=== PATIENT | male | born 1950 | race Caucasian/White ===

== ENCOUNTER 2019-08-19 10:53 | Emergency (ER) | payer MEDICARE, OTHER ==
[~2019-08-19] VITALS: Ht 182 cm; Wt 80.0 kg
--- NOTE | 2019-08-19 11:27 | Diagnostic Imaging Report ---
PROCEDURE: CT head without contrast. TECHNIQUE: Multiple contiguous axial images were obtained through the brain without the use of intravenous contrast. Auto Exposure Controls were utilized during the CT exam to meet ALARA standards for radiation dose reduction. DATE: August 19, 2019. COMPARISON: None. INDICATION: 69-year-old male, fall. Hit head. FINDINGS: There is no identified skull fracture. The visualized portions of the paranasal sinuses, mastoid air cells, and middle ears are well-aerated bilaterally. There is a persistent cavum septum pellucidum and cavum Raymond. There is no hydrocephalus. There is no identified abnormal extra-axial fluid collection. There is no evidence of acute intracranial hemorrhage. There is no mass effect or midline shift. IMPRESSION: 1. No identified acute intracranial abnormality. Dictated by: Dictated on workstation # [id number]
[2019-08-19 11:36] VITALS: BP 147/86
--- NOTE | 2019-08-19 11:57 | ED Head Injury ---
General Chief Complaint: Head/Cervical Problems Stated Complaint: FALL - HIT HEAD Nursing Triage Note: PT FELL ON THE ICE AND HIT THE BACK OF HIS HEAD. SONHannah STATES HE WAS CONFUSED FOR A LITTLE BIT BUT SEEMS OT BE ACTING NORMAL NOW. Source: patient, family Exam Limitations: no limitations History of Present Illness Date Seen by Provider: Aug 19, 2019 Time Seen by Provider: 11:52 Initial Comments This 69-year-old white male presents after he is overtly filming ice and hit the back of his head shortly prior to presentation emergency department. Patient was momentarily confused but had no loss of consciousness. He has subsequently had no significant complaints other than of minor discomfort to the occiput. He denies neck pain. He denies paresthesias or weakness in extremities. He denies trauma to his chest abdomen or pelvis. Patient denies previous significant head injury. The patient sustained no abrasion. Allergies and Home Medications Home Medications Ibuprofen 800 Mg Tablet, 800 MG PO Q8H PRN for PAIN Prescribed by: GLADIS REID MD on 08/19/19 1158 Lisinopril 10 Mg Tablet, 10 MG PO DAILY Prescribed by: GLADIS REID MD on 08/19/19 1158 Patient Home Medication List Home Medication List Reviewed: Yes Review of Systems Review of Systems Constitutional: No chills, No fever Eyes: Denies Blindness, Denies Blurred Vision; Pain Ears, Nose, Mouth, Throat: no symptoms reported (to the occiput) Respiratory: no symptoms reported Cardiovascular: no symptoms reported Gastrointestinal: no symptoms reported Musculoskeletal: No back pain, No neck pain Skin: no symptoms reported Psychiatric/Neurological: No Symptoms Reported Endocrine: No Symptoms Reported Hematologic/Lymphatic: No Symptoms Reported Past Teprlev-Ctdzje-Atunot Hx Past Med/Social Hx: Reviewed Nursing Past Med/Soc Hx Patient Social History Alcohol Use: Denies Use Recreational Drug Use: No 2nd Hand Smoke Exposure: No Recent Foreign Travel: No Contact w/Someone Who Travel: No Recent Infectious Disease Expo: No Recent Hopitalizations: No Physical Abuse: No Sexual Abuse: No Mistreated: No Fear: No Seasonal Allergies Seasonal Allergies: No Past Medical History Surgeries: Yes (HERNIA REPAIR) Respiratory: No Cardiac: Yes Hypertension Neurological: No Genitourinary: No Gastrointestinal: No Musculoskeletal: No Endocrine: No HEENT: No Cancer: No Psychosocial: No Blood Disorders: No Physical Exam Vital Signs Vital Signs - First Documented 08/19/19 11:04 Temp 36.6 Pulse 63 Resp 18 B/P (MAP) 166/96 (119) Pulse Ox 63 O2 Delivery Room Air Capillary Refill : Less Than 3 Seconds Height, Weight, BMI Height: '" Weight: lbs. oz. kg; 24.00 BMI Method: General Appearance: WD/WN, no apparent distress HEENT: normal ENT inspection, other (no abrasion or contusion is noted to the occiput.) Neck: non-tender, full range of motion, supple, normal inspection Cardiovascular: regular rate, rhythm, no murmur Respiratory: lungs clear, normal breath sounds Gastrointestinal: normal bowel sounds, non tender, soft Back: normal inspection Extremities: normal range of motion, non-tender Psychiatric: alert, oriented x 3 Crainal Nerves: normal speech Motor/Sensory: no motor deficit, no sensory deficit Skin: normal color, warm/dry Progress/Results/Core Measures Results/Orders My Orders Orders - GLADIS REID MD Ct Head Wo (08/19/19 11:03) Vital Signs/I&O 08/19/19 08/19/19 11:04 11:36 Temp 36.6 Pulse 63 82 Resp 18 B/P (MAP) 166/96 (119) 147/86 (106) Pulse Ox 63 O2 Delivery Room Air Blood Pressure Mean: 106 Progress Progress Note : Time: 11:[address] of the head fails to demonstrate evidence of acute pathology. Patient was informed of the findings and I discussed them with his family. I recommended ibuprofen for pain. I gave the patient a prescription for lisinopril one half of a 10 mg tablet daily as he is out of this prescription currently. Departure Impression Primary Impression: Closed head injury Qualified Codes: S09.90XA - Unspecified injury of head, initial encounter Disposition: HOME, SELF-CARE Condition: Improved Departure-Patient Inst. Decision time for Depature: 11:56 Referrals: STEVE ROCA MD (PCP/Family) Primary Care Physician Patient Instructions: Closed Head Injury (DC) Add. Discharge Instructions: Ibuprofen for pain. Follow-up with Dr. Roca on Wednesday for recheck. Return if any problems or questions. All discharge instructions reviewed with patient and/or family. Voiced unders tanding. Scripts Ibuprofen (Ibuprofen) 800 Mg Tablet 800 MG PO Q8H PRN for PAIN, #30 TAB 0 Refills Prov: GLADIS RIED MD 08/19/19 Ibuprofen (Ibuprofen) 800 Mg Tablet 800 MG PO Q8H PRN for PAIN, #30 TAB 0 Refills Prov: GLADIS REID MD 08/19/19 Lisinopril (Lisinopril) 10 Mg Tablet 10 MG PO DAILY, #90 TAB Prov: GLADIS REID MD 08/19/19 GLADIS REID MD Aug 19, 2019 11:57
[2019-08-19] MEDS ORDERED: IBUP-1780 PO ×2 (11:58→12:03)
[2019-08-19] MEDS ORDERED: LISI10TA2 PO (11:58)
[2019-08-19 12:14] VITALS: BP 142/80
== END 2019-08-19 12:14 | disposition home or self-care (01) ==
LOC: ER FS 10:55
DX: S09.90XA Unspecified injury of head, initial encounter (principal); I10 Essential (primary) hypertension; W00.9XXA Unspecified fall due to ice and snow, initial encounter
CPT/HCPCS: 70450